=== PATIENT | female | born 1995 | race Caucasian/White ===

== ENCOUNTER 2022-09-27 13:44 | Emergency (ER) | payer SELFPAY ==
[2022-09-27] MEDS: hydrALAZINE 20 MG/ML SDV IVPUSH ONE (14:31)
[2022-09-27] MEDS: cloNIDine 0.1 MG Tab PO ONE (14:34)
[2022-09-27] MEDS: Ketorolac 30 MG/ML SDV IVPUSH ONE (14:37)
[2022-09-27] MEDS: Sodium Chloride 0.9% 1,000 ML IV ONE (14:37)
[2022-09-27] MEDS: Ondansetron 4 MG/2 ML SDV IVPUSH ONE (14:37)
[2022-09-27 14:46] LABS: CARBON DIOXIDE,CO2 22.5 mmol/L (21.0-32.0); POTASSIUM,K 3.6 mmol/L (3.5-5.1)
[2022-09-27] MEDS: Lisinopril 10 MG Tab PO ONE (15:52)
== END 2022-09-27 16:54 | disposition home or self-care (01) ==
LOC: MW.ED 13:44
DX: R51.9 Headache, unspecified (principal); I10 Essential (primary) hypertension; Z76.0 Encounter for issue of repeat prescription; Z79.899 Other long term (current) drug therapy
CPT/HCPCS: 36415; 70450; 80053; 80305; 80307; 81001; 81025; 85025; 93005; 96361; 96374; 96375; 99284; A9270; J1885; J2405; J7030; 93010